=== PATIENT | female | born 1965 | race Caucasian/White ===

== ENCOUNTER 2019-05-01 06:04 | Day surgery (SDC) | payer OTHER ==
[2019-05-01] MEDS ORDERED: fentaNYL 250 MCG/5 ML VIAL IVP ONE (06:05)
[2019-05-01] MEDS ORDERED: HYDROmorphone 1 MG/ML CARPUJECT IVP ONE (06:05)
[2019-05-01] MEDS ORDERED: ePHEDrine 50 MG/ML VIAL IVP ONE (06:05)
[2019-05-01] MEDS ORDERED: LIDOCAINE-MPF 2% 5 ML VIAL IM ONE (06:05)
[2019-05-01] MEDS ORDERED: LABETALOL 5 MG/1 ML 20 ML MDV IV ONE (06:05)
[2019-05-01] MEDS ORDERED: DEXAMETHASONE 4 MG/ML VIAL IVP ONE (06:05)
[2019-05-01] MEDS ORDERED: MIDAZOLAM 2 MG/2 ML VIAL IVP ONE (06:05)
[2019-05-01] MEDS ORDERED: NEOSTIGMINE 1 MG/1 ML 10 ML MDV IVP ONE (06:05)
[2019-05-01] MEDS ORDERED: ACETAMINOPHEN 1,000 MG/100 ML 100 ML IV ONE (06:05)
[2019-05-01] MEDS ORDERED: PROPOFOL 200 MG/20 ML VIAL IVP ONE (06:05)
[2019-05-01] MEDS ORDERED: ONDANSETRON 4 MG/2 ML VIAL IVP ONE (06:05)
[2019-05-01] MEDS ORDERED: LACTATED RINGERS 1,000 ML IV ONE ×4 (06:28→11:59)
[2019-05-01] MEDS ORDERED: CEFAZOLIN SODIUM IN 0.9 % NACL 2 GM/100 ML BAG IV ONE (06:33)
--- NOTE | 2019-05-01 07:05 | ANESTHESIA ---
Pre-Anesthesia VS, & Labs - Diagnosis Right TMJ disorder, primary osteoarthritis - Procedure Right TMJ arthroplasty Vital Signs: Temp Pulse Resp BP Pulse Ox 36.2 C L 95 16 144/96 H 95 05/01/19 06:32 05/01/19 06:32 05/01/19 06:32 05/01/19 06:32 05/01/19 06:32 Height 5 ft 5 in Weight (kg) 106 kg - NPO >8 hours - Is Patient ?: No Home Medications and Allergies Home Medications: Ambulatory Orders Albuterol Sulfate [Proair Hfa Inhaler] 1 - 2 puffs INH Q4H PRN 04/27/19 Amitriptyline [Elavil] 25 mg PO DAILY 04/27/19 Bupropion HCl [Wellbutrin Xl] 300 mg PO DAILY 04/27/19 Fexofenadine/Pseudoephedrine [Samia-D 24 Hour Tablet] 1 each PO DAILY 04/27/19 Fluticasone [Flonase] 1 sprays EVAN BID 04/27/19 Fluticasone/Salmeterol [Advair 100-50 Diskus] 1 each IH BID 04/27/19 Levothyroxine [Synthroid] 88 mcg PO QDAC 04/27/19 Montelukast [Singulair] 10 mg PO QPM 04/27/19 Rizatriptan Benzoate [Maxalt] 10 mg PO ONCE PRN 04/27/19 Verapamil HCl [Verapamil ER] 240 mg PO DAILY 04/27/19 Albuterol Sulfate [Proair Hfa Inhaler] 1 - 2 puffs INH Q4H PRN 04/27/19 Amitriptyline [Elavil] 25 mg PO DAILY 04/27/19 Bupropion HCl [Wellbutrin Xl] 300 mg PO DAILY 04/27/19 Fexofenadine/Pseudoephedrine [Samia-D 24 Hour Tablet] 1 each PO DAILY 04/27/19 Fluticasone [Flonase] 1 sprays EVAN BID 04/27/19 Fluticasone/Salmeterol [Advair 100-50 Diskus] 1 each IH BID 04/27/19 Levothyroxine [Synthroid] 88 mcg PO QDAC 04/27/19 Montelukast [Singulair] 10 mg PO QPM 04/27/19 Rizatriptan Benzoate [Maxalt] 10 mg PO ONCE PRN 04/27/19 Verapamil HCl [Verapamil ER] 240 mg PO DAILY 04/27/19 Allergies/Adverse Reactions: Allergies Allergy/AdvReac Type Severity Reaction Status Date / Time latex Allergy Rash, Verified 04/27/19 16:31 itching Sulfa (Sulfonamide Allergy Anaphylaxis Verified 04/27/19 16:31 Antibiotics) Anes History & Medical History - Anesthetic History Anesthesia Complications: reports: No previous complications - Medical History Cardiovascular: reports: None Pulmonary: reports: Asthma Gastrointestinal: reports: None Urinary: reports: None Neuro: reports: Migraines Musculoskeletal: reports: Osteoarthritis Endocrine/Autoimmune: reports: HyPOthyroidism, Other (obese) Skin: reports: None Smoking Status: Never smoker Psychosocial: reports: Depression, Anxiety - Surgical History General: Cholecystectomy Gynecologic: Hysterectomy, Other Exam General: Alert Dental: WNL Mouth Openin Fingerbreadth Mallampati classification: III Thyromental Distance: 4-6 cm Respiratory: Lungs clear Cardiovascular: Regular rate, Normal S1, Normal S2 Plan Anesthesia Type: General Consent for Procedure(s) Verified and Reviewed: Yes Code Status: Attempt Resuscitation ASA classification: 2-Mild systemic disease Is this case an emergency?: No
[2019-05-01 07:14] LABS: BASOPHILS # (AUTO) 0.1 10^3/uL (0.0-0.1); BASOPHILS % (AUTO) 0.8 %; EOSINOPHILS # (AUTO) 0.3 10^3/uL (0.0-0.7); HGB - HEMOGLOBIN 13.7 g/dL (12.0-16.0); LYMPHOCYTES # (AUTO) 2.1 10^3/uL (1.5-3.5); LYMPHOCYTES % (AUTO) 24.1 %; MEAN CORPUSCULAR HGB CONC 32.4 g/dL (32.0-36.0); MEAN CORPUSCULAR VOLUME 89.4 fL (81.0-99.0); MEAN PLATELET VOLUME 9.1 fL (7.9-10.8); MONOCYTES # (AUTO) 0.5 10^3/uL (0.0-1.0); MONOCYTES % (AUTO) 5.9 %; NEUTROPHILS # (AUTO) 5.5 10^3/uL (1.5-6.6); NEUTROPHILS % (AUTO) 64.8 %; PLT - PLATELET COUNT 324 10^3/uL (130-450); RED BLOOD COUNT 4.73 10^6/uL (4.20-5.40); RED CELL DISTRIBUTION WIDTH 13.3 % (12.0-15.0); WHITE BLOOD COUNT 8.5 x10^3/uL (4.8-10.8)
[2019-05-01 07:24] LABS: CALCIUM 9.1 mg/dL (8.5-10.3); CREATININE 1.1 mg/dL (0.4-1.0)
[2019-05-01] MEDS ORDERED: BACITRACIN OINT TOP ONE (07:27)
[2019-05-01] MEDS ORDERED: MINERAL OIL/PETROLAT OPHTH OINT ONE (07:28)
[2019-05-01] MEDS ORDERED: LIDOCAINE MPF 2%-EPI 1:200000 20 ML VIAL ONE (07:28)
[2019-05-01] MEDS ORDERED: BACITRACIN 50,000 UNIT VIAL ONE ×2 (07:29→12:06)
[2019-05-01] MEDS ORDERED: LIDOCAINE JELLY 2% 5 ML TUBE TOP ONE (07:30)
[2019-05-01] MEDS ORDERED: EPINEPHrine 1 MG/ML AMP ONE (07:30)
[2019-05-01] MEDS ORDERED: CHLORHEXIDINE GLUCONATE 15 ML UDC PO ONE ×2 (07:33→09:38)
[2019-05-01] MEDS ORDERED: SUGAMMADEX 500 MG/5 ML VIAL IVP ONE (08:58)
[2019-05-01] MEDS ORDERED: SUGAMMADEX 200 MG/2 ML VIAL IVP ONE (08:59)
[2019-05-01] MEDS ORDERED: LIDOCAINE MPF 2%-EPI 1:200000 20 ML VIAL SUBQ ONE (09:22)
[2019-05-01] MEDS ORDERED: BACITRACIN ZINC OINT 14 GM TOP ONE (09:40)
[2019-05-01] MEDS ORDERED: BACITRACIN 50,000 UNIT VIAL IM ONE (09:41)
[2019-05-01] MEDS ORDERED: BACITRACIN 50,000 UNIT VIAL TOP ONE (09:41)
[2019-05-01] MEDS ORDERED: EPINEPHrine 1 MG/ML VIAL IR ONE (09:43)
[2019-05-01] MEDS ORDERED: MINERAL OIL/PETROLAT OPHTH OINT EACHEYE ONE (09:43)
[2019-05-01] MEDS ORDERED: BUPIVACAINE 0.5%-EPI 1:200000 PF 30 ML VIAL SUBQ ONE ×2 (12:13)
[2019-05-01] MEDS ORDERED: BUPIVACAINE 0.5%-EPI 1:200000 PF 10 ML VIAL ONE (12:19)
[2019-05-01] MEDS: HYDROmorphone 0.5 MG/0.5 ML SYRINGE ONE ×2 (13:08→13:16)
[2019-05-01] MEDS ORDERED: LORazepam 2 MG/ML VIAL ONE (13:29)
[2019-05-01] MEDS ORDERED: ONDANSETRON 4 MG/2 ML VIAL IVP PRN (14:01)
[2019-05-01] MEDS ORDERED: oxyCODONE 10 MG/0.5 ML SYRINGE PO PRN (14:02)
[2019-05-01] MEDS ORDERED: KETOROLAC 30 MG/ML VIAL IVP PRN (14:03)
[2019-05-01] MEDS ORDERED: HYDROmorphone 1 MG/ML CARPUJECT IVP PRN (14:44)
[2019-05-01 15:00] VITALS: BP 157/84
[2019-05-01] MEDS ORDERED: ONDANSETRON ODT 4 MG TABLET ONE (15:18)
--- NOTE | 2019-05-01 18:02 | OPERATIVE REPORT ---
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 PROCEDURE PERFORMED: Arthroplasty of the right temporomandibular joint with prosthetic joint replacement. PRIMARY SURGEON: Perry Saucedo DDS. DIRECT MARKETING COORDINATOR: Sheeba. ANESTHESIA PROVIDER: Michele. ANESTHESIA TYPE: General anesthesia via nasal endotracheal intubation. IMPLANTS: All [employer] implants were used. In the right temporomandibular joint, there was a medium size fossa implant and a medium sized condylar implant. In the condylar implant, there are 6 screws and holding in the fossa implant there are 5 screws. There are also superficial implants. These are hybrid IMF also by [employer], 1 bar in the maxilla, 1 bar on the mandible, each held in with 4 screws. SPECIMENS: None. ESTIMATED BLOOD LOSS: 150 mL INDICATIONS FOR PROCEDURE: Patient is a 53-year-old female who presented to my clinic with jaw pain on the right side. Clinical and radiographic examination was consistent with degenerative joint disease of the right temporomandibular joint. It was decided that removal of the joint and replacement with a prosthetic was indicated. The risks, benefits and alternatives of this plan were discussed with the patient including pain, swelling, bleeding, infection, hardware failure, malocclusion, nonunion, need for further surgery, osteomyelitis, permanent numbness of the adjacent areas in the lip and chin and permanent paralysis of the nerves of the face, scarring and poor cosmesis. Adequate time was given to answer all questions and informed consent was obtained. DESCRIPTION OF PROCEDURE: Patient was brought to the main operating room and placed in the supine position on the operating table. General anesthesia was induced by the anesthesia team and the airway was secured with a nasal endotracheal tube. The tube was secured in the usual fashion. The eyes were protected with Tegaderms. The pressure points were padded and checked. The patient was prepped in the standard sterile fashion for TM joint replacement surgery including use of a urologic drape to isolate the nose and mouth and from the surgical site. A formal timeout was executed. Local anesthesia was achieved with 2% lidocaine with 1:100,000 epinephrine times 10 mL. A maxillary hybrid arch bar was placed with 4 screws holding it in place. The mandibular hybrid arch bar was placed with 4 screws holding it in place. This portion of the procedure, the hybrid arch bar placement was actually done prior to the prep and drape in order to keep the prep and sterile. The attention was then directed to the right ear after rescrubbing. The preauricular incision and submandibular incision were both marked. The preauricular incision was performed first using a 15 blade through the skin and then scissors down to the temporalis muscle and then following that down to the zygomatic arch. Then, making a subperiosteal dissection through the zygomatic arch and reflecting the tissue anteriorly and keeping the dissection very posterior inferior to this location in a nice bloodless plane. Once this dissection was completed and the condylar head could be visualized, it was found to be very diseased and no identifiable disk was noted. Attention was then directed to the right submandibular region. An incision was made 2 cm below the inferior border of the mandible. This was made with a 15 blade, was made down to the platysma. The platysma was then incised only after using the nerve stimulator to check for the marginal mandibular branch of the facial nerve. Dissection continued deep until we encountered the posterior belly of the digastric muscle and the submandibular salivary gland. The submandibular salivary gland was retracted anteriorly and right there could we visualize the pterygomasseteric sling. This was sharply incised at the inferior portion and the masseter was reflected off of the lateral aspect of the mandible, revealing the entire lateral ramus and angle up to the condyle. We secured a bone clamp to the inferior border of the mandible and turned our attention back through the right preauricular incision. The condyle was isolated with retractors, the condylar neck retractors were used and the blood vessels deep to the condylar neck were protected with these retractors. A fissure bur was then used to carefully paint off a trough of bone until the condyle could be removed. After it was loose and loosened with a T- bar then it came time to remove the lateral pterygoid muscle from the pterygoid fovea. The lateral pterygoid muscle was removed with a # 1 and a little bit of Bovie to get it completely removed in a hemostatic fashion. The condyle was then pushed upwards using a bone clamp, which was fitted earlier to the inferior border of the mandible. This brought the condylar neck more into view. The resection of the condylar neck was repeated in identical fashion as the condylar head was removed. Then again for a third time the condylar neck was removed once we realized there was inadequate clearance with the fossa implant. After all these times of the condyle and condylar neck being removed, good clearance was appreciated. A reciprocating saw was used to smooth off any sharp edges of the bone and it came time to try in a fossa implant. We tried in a small fossa implant, then a medium implant. The medium implant fit very well and we secured it with 2 screws. Patient was then put in intermaxillary fixation and scrub was broken and we rescrubbed. Attention was then directed back to the preauricular incision, with the patient now in intermaxillary fixation it was easy to appreciate that there was excellent clearance from the mandible to the implant, medium condyle was tried into the site and it fit very well. It was screwed into place with 6 screws and before the final screws were placed the MF was released and we broke scrub and then rescrubbed again. Prior to rescrubbing and after releasing MF good occlusion could be appreciated. Our attention was directed again to the right preauricular area and the remaining screws in the fossa implant and in the condyle were placed and then there was some bleeding, probably from the masseteric artery and this bleeding was controlled with use of Surgiflo. After that patient was completely hemostatic. The deep layers were closed with 4-0 Vicryl suture and the superficial layers were closed with 5-0 Prolene suture. The throat pack was removed. The mouth was cleansed. The Mcgill catheter was then removed and care of the patient was returned to the anesthesia team for uneventful emergence from anesthesia, extubation and transfer to PACU in stable condition. COMPLICATIONS: None. TD: 05/01/2019 16:55 DAVON
== END 2019-05-01 06:05 | disposition home or self-care (01) ==
LOC: SDS 06:04
PROVIDERS: ATTEND Dentist Oral and Maxillofacial Surgery
PROC: 0RRC0JZ Replacement of Right Temporomandibular Joint with Synthetic Substitute, Open Approach (ICD-10-PCS; principal; 2019-05-01 07:30)
DX: M26.611 Adhesions and ankylosis of right temporomandibular joint (principal); J45.909 Unspecified asthma, uncomplicated; E03.9 Hypothyroidism, unspecified; E66.9 Obesity, unspecified; Z68.38 Body mass index [BMI] 38.0-38.9, adult; R05 Cough; Z79.51 Long term (current) use of inhaled steroids
CPT/HCPCS: 21243; 36415; 80048; 85025; A9270; C1713; C1776; J0131; J0171; J0690; J1170; J2060; J3010; J3490; J7120; Q0162

== ENCOUNTER 2020-10-16 07:34 | Day surgery (SDC) | payer OTHER ==
--- NOTE | 2020-10-16 08:31 | ANESTHESIA ---
Pre-Anesthesia VS, & Labs - Diagnosis screening, family hx of colon cancer - Procedure colonoscopy Vital Signs: Temp Pulse Resp BP Pulse Ox 36.6 C 80 16 144/92 H 98 10/16/20 08:00 10/16/20 08:00 10/16/20 08:00 10/16/20 08:00 10/16/20 08:00 Height: 5 ft 5 in Weight (kg): 103.3 kg Body Mass Index: 37.9 BMI Classification: Obese - NPO >8 hours - Is Patient ?: No - Lab Results Lab results reviewed: Yes Home Medications and Allergies Home Medications: Ambulatory Orders Fexofenadine HCl 180 mg PO DAILY 10/15/20 Albuterol Sulfate [Proair Hfa Inhaler] 1 - 2 puffs INH Q4H PRN 04/27/19 Amitriptyline [Elavil] 25 mg PO DAILY 04/27/19 Bupropion HCl [Wellbutrin Xl] 300 mg PO DAILY 04/27/19 Fluticasone [Flonase] 1 sprays EVAN BID 04/27/19 Fluticasone/Salmeterol [Advair 100-50 Diskus] 1 each IH BID 04/27/19 Levothyroxine [Synthroid] 88 mcg PO QDAC 04/27/19 Rizatriptan Benzoate [Maxalt] 10 mg PO ONCE PRN 04/27/19 Verapamil HCl [Verapamil ER] 240 mg PO DAILY 04/27/19 Fexofenadine HCl 180 mg PO DAILY 10/15/20 Allergies/Adverse Reactions: Allergies Allergy/AdvReac Type Severity Reaction Status Date / Time latex Allergy Rash, Verified 04/27/19 16:31 itching Sulfa (Sulfonamide Allergy Anaphylaxis Verified 04/27/19 16:31 Antibiotics) Anes History & Medical History - Anesthetic History Anesthesia Complications: reports: No previous complications Family history of Anesthesia Complications: Denies Family history of Malignant Hyperthermia: Denies - Medical History Cardiovascular: reports: None Pulmonary: reports: Asthma Gastrointestinal: reports: None Urinary: reports: None Neuro: reports: Migraines Musculoskeletal: reports: Osteoarthritis Endocrine/Autoimmune: reports: HyPOthyroidism, Other Skin: reports: None Smoking Status: Never smoker - Surgical History General: reports: Cholecystectomy, Colonoscopy Gynecologic: reports: Hysterectomy, Other Exam General: Alert, Oriented x3, Cooperative Dental: WNL Mouth Openin Fingerbreadth (opens at slight angle to R r/t jaw arthroplasty) Respiratory: Lungs clear, Normal breath sounds, No respiratory distress Cardiovascular: Regular rate Mental/Cognitive Status: Alert/Oriented X3, Normal for patient Cognitive Status: Within normal limits Plan Anesthesia Type: Total IV Consent for Procedure(s) Verified and Reviewed: Yes Code Status: Attempt Resuscitation ASA classification: 2-Mild systemic disease Is this case an emergency?: No
[2020-10-16] MEDS ORDERED: LIDOCAINE-MPF 2% 5 ML VIAL ONE (09:15)
[2020-10-16] MEDS ORDERED: PROPOFOL 500 MG/50 ML 500 MG/50 ML VIAL ONE (09:15)
[2020-10-16] MEDS ORDERED: LACTATED RINGERS 1,000 ML IV ONE (09:45)
[2020-10-16 10:14] VITALS: BP 99/60
--- NOTE | 2020-10-16 16:13 | ANESTHESIA POST OP EVALUATION ---
Anesthesia Post Eval - Post Anesthesia Eval Vitals: Last Vital Signs Temp 36.3 C L 10/16/20 09:46 Pulse 72 10/16/20 10:14 Resp 16 10/16/20 10:14 BP 99/60 10/16/20 10:14 Pulse Ox 99 10/16/20 10:14 CV Function Including HR & BP: positive: Stable Pain Control: positive: Satisfactory Nausea & Vomiting: positive: Negative Mental Status: positive: Baseline Respiratory Status: Airway Patent Hydration Status: Satisfactory Anesthesia Complications: positive: None
== END 2020-10-16 07:35 | disposition home or self-care (01) ==
LOC: SDS 07:34
PROVIDERS: ATTEND Surgery
PROC: 0DBN8ZZ Excision of Sigmoid Colon, Via Natural or Artificial Opening Endoscopic (ICD-10-PCS; principal; 2020-10-16 09:00)
DX: Z12.11 Encounter for screening for malignant neoplasm of colon (principal); D12.5 Benign neoplasm of sigmoid colon; K57.30 Diverticulosis of large intestine without perforation or abscess without bleeding; Z80.0 Family history of malignant neoplasm of digestive organs; J45.909 Unspecified asthma, uncomplicated; E03.9 Hypothyroidism, unspecified; E66.9 Obesity, unspecified; Z68.37 Body mass index [BMI] 37.0-37.9, adult; Z79.51 Long term (current) use of inhaled steroids; Z79.899 Other long term (current) drug therapy
CPT/HCPCS: 45385; J7120

== ENCOUNTER 2021-04-27 08:00 | Outpatient (CLI) | payer OTHER ==
[2021-04-27 17:10] LABS: BILIRUBIN,URINE NEGATIVE (NEGATIVE); GLUCOSE, URINE (UA) NEGATIVE (NEGATIVE); KETONES,URINE (UA) NEGATIVE (NEGATIVE); LEUKOCYTE ESTERASE, URINE NEGATIVE (NEGATIVE); NITRITE,URINE POSITIVE (NEGATIVE); OCCULT BLOOD,URINE LARGE (NEGATIVE); PH,URINE 6.5 PH (5.0-7.5); PROTEIN,URINE NEGATIVE (NEGATIVE); UROBILINOGEN,URINE 1 (NORMAL) E.U./dL (NORMAL)
[2021-04-27 17:27] LABS: BACTERIA,URINE Rare /HPF (None Seen); CLARITY,URINE CLEAR (CLEAR); RBC,URINE TNTC /HPF (0-5); SQUAMOUS EPITHELIAL CELL,UR RARE Squamous (<= Few); WBC,URINE 0-3 /HPF (0-5)
== END 2021-04-27 23:59 | disposition home or self-care (01) ==
LOC: LAB.N 08:00
PROVIDERS: ATTEND Family Medicine
DX: R39.9 Unspecified symptoms and signs involving the genitourinary system (principal)
CPT/HCPCS: 81001; 87086

== ENCOUNTER 2022-12-03 08:00 | Outpatient (CLI) | payer OTHER | END 2022-12-03 23:59 | disposition home or self-care (01) | LOC: LAB.N 08:00 | PROVIDERS: ATTEND Specialist | DX: N39.0 Urinary tract infection, site not specified (principal) | CPT/HCPCS: 87086 ==